=== PATIENT | male | born 1945 | race Caucasian/White ===

== ENCOUNTER 2017-12-08 12:24 | Emergency (ER) | payer OTHER ==
[2017-12-08 12:51] VITALS: BP 231/95; PULSE 65; RESP 20; TEMP 97.5; O2SAT 98
--- NOTE | 2017-12-08 14:32 | RADRPT ---
EXAM DATE/TIME: 12/08/2017 14:06 [place] COMPARISON: No previous studies available for comparison. INDICATIONS : Shortness of breath. MEDICAL HISTORY : Hypertension. SURGICAL HISTORY : None. ENCOUNTER: Initial ACUITY: 4 - 6 days PAIN SCORE: 0/10 LOCATION: Bilateral chest FINDINGS: PA and lateral views of the chest demonstrate the lungs to be hyperaerated without evidence of mass, infiltrate or effusion. Blunting of the costophrenic angles likely pleural thickening versus less li pa tiny effusions versus. The cardiomediastinal contours are unremarkable. Osseous structures are intact. CONCLUSION: Hyperinflation which can be seen with COPD. No infiltrate. Gino Owusu MD on December 08, 2017 at 14:28 Board Certified Radiologist. This report was verified electronically.
[2017-12-08] MEDS ORDERED: TRAM50TA PO (14:52)
[2017-12-08] MEDS ORDERED: GABA100C4 PO (14:52)
[2017-12-08] MEDS ORDERED: TRAZ50TA12 PO (14:52)
[2017-12-08] MEDS ORDERED: ASPI-183 PO (14:53)
[2017-12-08] MEDS ORDERED: PRAV40TA2 PO (15:23)
[2017-12-08] MEDS ORDERED: LISI40TA PO (15:25)
--- NOTE | 2017-12-08 15:39 | PD ---
HPI . High blood pressure Chief Complaint: Hypertension Time Seen by Provider: 14:45 Travel History International Travel<30 days: No Contact w/Intl Traveler<30days: No Traveled to known affect area: No History of Present Illness HPI This patient presents to us stating that the [facility] sent him here because of elevated blood pressure. He has a known history of hypertension. He now admits that he missed his dose of blood pressure medication this morning. He normally takes lisinopril 20 mg daily. The patient denies any symptoms whatsoever such as headache, blurred vision, chest pain, shortness of breath. He does report chronic issues of dyspnea on exertion related to deconditioning related to chronic pain secondary to rheumatoid arthritis. He also reports a history of peripheral edema. Both the dyspnea and the peripheral edema are chronic and unchanged. 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) Social History Alcohol Use: No Tobacco Use: No Substance Use: No Allergies-Medications (Allergen,Severity, Reaction): Coded Allergies: iodine (Verified Allergy, Unknown, 12/08/17) Reported Meds & Prescriptions Reported Meds & Active Scripts Active Reported Lisinopril 40 Mg Tab 20 Mg PO DAILY Pravastatin 40 Mg Tab 50 Mg PO BID Aspirin 325 Mg Tab 325 Mg PO DAILY Gabapentin 100 Mg Cap 100 Mg PO HS Trazodone (Trazodone HCl) 50 Mg Tab 50 Mg PO HS Tramadol (Tramadol HCl) 50 Mg Tab 50 Mg PO Q8H PRN Review of Systems Except as stated in HPI: all other systems reviewed are Neg Physical Exam Narrative GENERAL: Awake and alert and in no acute distress. SKIN: Warm and dry. HEAD: Normocephalic/atraumatic. EYES: Pupils are equal. Extraocular movements are intact. NECK: Normal range of motion. CARDIOVASCULAR: Regular rate and rhythm. Heart sounds are normal. RESPIRATORY: Nonlabored respirations. Lungs are clear with full air movement throughout. MUSCULOSKELETAL: Atraumatic. 4+ pretibial pitting edema. NEUROLOGICAL: Nonfocal. PSYCHIATRIC: Appropriate mood and affect. Data Data Last Documented VS Vital Signs Date Time Temp Pulse Resp B/P (MAP) Pulse Ox O2 Delivery O2 Flow Rate FiO2 12/08/17 12:51 97.5 65 20 231/95 (140) 98 Orders Orders Electrocardiogram (12/08/17 13:40) Basic Metabolic Panel (Bmp) (12/08/17 13:40) Complete Blood Count With Diff (12/08/17 13:40) Troponin I (12/08/17 13:40) Chest, Pa & Lat (12/08/17 13:40) MDM Medical Decision Making Medical Screen Exam Complete: Yes Emergency Medical Condition: Yes Interpretation(s) EKG shows a normal sinus rhythm with no acute ischemic changes Differential Diagnosis My differential diagnosis of high blood pressure includes but is not limited to "white coat syndrome," anxiety, essential hypertension, hypertensive emergency. Narrative Course This patient presents stating that the [facility] clinic sent him here for elevated blood pressure. He does not have any signs or symptoms of hypertensive urgency. He missed his blood pressure medication this morning. I will discharge him with instructions to take his blood pressure medication as directed and follow-up at the [facility] clinic as scheduled. Last Impressions Chest X-Ray 12/08/17 1340 Signed Impressions: Service Date/Time: Friday, December 08, 2017 14:06 - CONCLUSION: Hyperinflation which can be seen with COPD. No infiltrate. Gino Owusu MD Diagnosis Primary Impression: Essential hypertension Additional Instructions: Take your lisinopril as directed Disposition: 01 DISCHARGE HOME Condition: Stable Kellie Owens MD Dec 08, 2017 15:39
[2017-12-08] MEDS ORDERED: LISINOPRIL 20 MG TAB PO ONE (15:45)
--- NOTE | 2017-12-09 16:41 | EKG ---
Date Performed: 12/08/2017 Time Performed: 15:04:48 PTAGE: 72 years EKG: Sinus rhythm NORMAL ECG NO PREVIOUS TRACING DOCTOR: Narendra Rangel Interpretating Date/Time 12/09/2017 16:44:17
== END 2017-12-08 16:10 | disposition home or self-care (01) ==
LOC: NEPD 12:24
DX: I10 Essential (primary) hypertension (principal); M06.9 Rheumatoid arthritis, unspecified; Z79.899 Other long term (current) drug therapy
CPT/HCPCS: 71046; 93005; 99284